=== PATIENT | female | born 1965 ===

== ENCOUNTER 2019-03-30 11:07 | Day surgery (SDC) | payer BC ==
[~2019-03-30 11:07] MED LIST: Buffered Lidocaine 1% SYRIN* 1 ML/SYRINGE INTRADERM ONE; Lactated Ringers 1000 ML Bag* 1,000 ML IV SCH; Midazolam* 1 MG/ML 5 ML VIAL (5 MG) ONE; ceFAZolin 2 GM PREMIX in ORs 2 GM/50 ML BAG IVPB ONE; fentaNYL* 50 MCG/ML 2 ML VIAL (100 MCG VIAL) ONE
[2019-03-30] MEDS ORDERED: Lidocain 1% EPI 1:100,000 * 30 ML MDV ONE (12:04)
[2019-03-30] MEDS ORDERED: Bupivacaine 0.25% SDV PF* 10 ML VIAL INJ ONE (12:05)
[2019-03-30] MEDS ORDERED: BSS OPTH.SOL* BTL ONE (12:06)
[2019-03-30] MEDS ORDERED: Naloxone* 0.4 MG/ML 1 ML VIAL IV PRN (12:36)
[2019-03-30] MEDS ORDERED: Propofol* 10 MG/ML 20 ML BTL ONE ×2 (12:47→14:15)
[2019-03-30] MEDS ORDERED: Artificial Tear OPHTH.OINT* 3.5 GM ONE (14:34)
[2019-03-30] MEDS ORDERED: Ibuprofen TAB* 600 MG ONE (15:07)
[2019-03-30 16:25] VITALS: BP 139/75
== END 2019-03-30 16:00 | disposition home or self-care (01) ==
LOC: OR 11:07
PROVIDERS: ATTEND Plastic Surgery
DX: C44.1122 Basal cell carcinoma of skin of right lower eyelid, including canthus (principal); C44.01 Basal cell carcinoma of skin of lip; Z72.0 Tobacco use
CPT/HCPCS: 88305; 88331; 88332; A9270-GY; J0690; J2250; J2704; J3010; J3490